=== PATIENT | male | born 1975 | race Caucasian/White ===

== ENCOUNTER → 2018-10-03 15:33 | Outpatient (CLI) | payer OTHER, SELFPAY ==
--- NOTE | 2018-10-03 15:50 | MRI_ITS ---
STUDY: MRI BRAIN WITH AND WITHOUT CONTRAST REASON FOR EXAM: Male, 43 years old. Vertigo and tinnitus TECHNIQUE: Standardized multiplanar fat and water weighted pulse sequences were obtained. 8 ml of Gadavist contrast material was administered intravenously for the contrast portion of the examination. COMPARISON: None. FINDINGS: The pituitary and pineal regions are normal. The brainstem is normal. The corpus callosum is normal. The 7th and 8th nerve complexes are normal. Both cerebellopontine angles are clear. The cerebellar vermis and lobes are normal. The ventricles, basal cisterns and cortical sulci are normal with no midline shift and no intra or extra-axial hemorrhage or tumor mass. There is no acute infarction. The calvarium is intact. There are no scalp swelling. There is a high riding left jugular bulb. It projects just inferior and posterior to the basal turn of the cochlea. The orbits, paranasal sinuses and mastoid air cells are normal.. MRI/Brain W/WO Contrast IMPRESSION: The vestibulocochlear apparatus is normal. There is a high riding of the jugular bulb. This may be responsible for the patient's tinnitus. Electronically Signed: Bakari Gleason MD at 7:09 EST Tel , Service support ,
== END ==
PROVIDERS: Referring Provider Otolaryngology; Visit Provider Otolaryngology
DX: H93.11 Tinnitus, right ear (principal); R42 Dizziness and giddiness
CPT/HCPCS: 70553; A9585